=== PATIENT | female | born 1990 | race Caucasian/White ===

== ENCOUNTER 2021-06-29 16:05 | Emergency (ER) | payer OTHER ==
[~2021-06-29] VITALS: Ht 162.6 cm; Wt 77.1 kg
--- NOTE | 2021-06-29 16:23 | NUR ---
DR GARCIA AT BEDSIDE FOR EVALUATION.
--- NOTE | 2021-06-29 16:31 | NUR ---
PT'S MOTHER ARRIVED,DECIDED TO SIGN OUT AMA - DISCUSSED WITH DR GARCIA; SAO2 100% (RA). AMA FORM SIGNED .
[2021-06-29 16:33] VITALS: BP 140/78
== END 2021-06-29 16:34 | disposition home or self-care (01) ==
LOC: ER 16:05
DX: R09.89 Other specified symptoms and signs involving the circulatory and respiratory systems (principal); T17.998A Other foreign object in respiratory tract, part unspecified causing other injury, initial encounter; X58.XXXA Exposure to other specified factors, initial encounter; Y92.89 Other specified places as the place of occurrence of the external cause; F41.9 Anxiety disorder, unspecified; R03.0 Elevated blood-pressure reading, without diagnosis of hypertension
CPT/HCPCS: A4663